=== PATIENT | female | born 1990 | race Two or more races ===

== ENCOUNTER 2024-10-24 15:30 | Inpatient (IN) | payer OTHER ==
[~2024-10-24] VITALS: Ht 154.9 cm; Wt 3.2 kg
[2024-10-30 15:30] VITALS: BP 114/78
[2024-10-30] MEDS ORDERED: PRENATAL TABLE1 EAC1 (16:11)
[2024-10-30] MEDS ORDERED: RINGERS SOLUTION,LACTATED 1,000 ML IV SCH (16:15)
[2024-10-30] MEDS ORDERED: MORPHINE SULFATE 4 MG/ML CARTRIDGE IV PRN (16:30)
[2024-10-30 17:06] LABS: HEMATOCRIT 33.5 % (36.0-45.00); HEMOGLOBIN 11.2 g/dL (12.0-15.00); MEAN CELL VOLUME 84.1 fL (80.00-100.00); MEAN CORPUSCULAR HEMOGLOBIN 28.2 pg (27.00-32.0); MEAN CORPUSCULAR HGB CONC 33.5 g/dl (32.0-36.0); PLATELET COUNT 243 K/uL (150-450); RED BLOOD COUNT 3.99 M/uL (4.00-6.00); RED CELL DISTRIBUTION WIDTH 14.9 % (11.5-14.5)
[2024-10-30] MEDS ORDERED: MISOPROSTOL 25 MCG TABLET VAG ONE (17:15)
[2024-10-30 17:17] LABS: INR 0.94; PARTIAL THROMBOPLASTIN TIME 25.6 SECONDS (22.0-34.0); PROTHROMBIN TIME 10.3 SECONDS (9.0-11.5)
[2024-10-30 17:22] LABS: BILIRUBIN TOTAL 0.57 mg/dL (0.3-1.2); CALCIUM 8.9 mg/dL (8.5-10.1); CREATININE SERUM 0.71 mg/dL (0.55-1.02); GFR 93.68; GLOBULINA 3.6 G/DL (2.4-3.5); POTASSIUM 4.19 mEq/L (3.5-5.1); TOTAL PROTEIN 6.6 gm/dL (6.4-8.2)
[2024-10-30 19:13] VITALS: BP 120/80
[2024-10-30] MEDS ORDERED: MAGNESIUM SULFATE IN WATER 500 ML IV SCH (22:00)
[2024-10-30] MEDS ORDERED: TERBUTALINE SULFATE 1 MG/ML AMPUL SUBCUTANEO ONE (22:00)
[2024-10-30 23:23] VITALS: BP 111/59
[2024-10-31 04:00] VITALS: BP 104/61
[2024-10-31 07:37] VITALS: BP 118/83
[2024-10-31] MEDS ORDERED: OXYTOCIN 500 ML IV SCH (08:15)
[2024-10-31] MEDS ORDERED: CEFAZOLIN SODIUM 1,000 MG VIAL IV SCH (09:00)
[2024-10-31] MEDS ORDERED: OXYTOCIN 1,000 ML IV SCH (11:15)
[2024-10-31] MEDS ORDERED: MORPHINE SULFATE 4 MG/ML CARTRIDGE IV PRN (11:15)
[2024-10-31] MEDS ORDERED: OXYTOCIN 10 UNITS/ML VIAL IV ONE (11:45)
[2024-10-31] MEDS ORDERED: ONDANSETRON HCL 2 MG/ML VIAL IV ONE (11:45)
[2024-10-31] MEDS ORDERED: ERYTHROMYCIN BASE OPHT 1GM EACH TUBE OP ONE (11:45)
[2024-10-31] MEDS ORDERED: MORPHINE SULFATE 4 MG/ML VIAL IV ONE ×2 (11:50→12:50)
[2024-10-31 16:22] VITALS: BP 123/78
[2024-11-01 01:16] VITALS: BP 113/73
[2024-11-01 05:25] VITALS: BP 94/60
[2024-11-01] MEDS ORDERED: MORPHINE SULFATE 4 MG/ML CARTRIDGE IV PRN (08:00)
[2024-11-01 08:37] VITALS: BP 105/68
[2024-11-01] MEDS ORDERED: IBUprofen 400 MG TABLET PO SCH (09:00)
[2024-11-01 09:19] LABS: HEMATOCRIT 26.6 % (36.0-45.00); MEAN CELL VOLUME 84.2 fL (80.00-100.00); MEAN CORPUSCULAR HEMOGLOBIN 28.2 pg (27.00-32.0); MEAN CORPUSCULAR HGB CONC 33.5 g/dl (32.0-36.0); PLATELET COUNT 207 K/uL (150-450); RED BLOOD COUNT 3.15 M/uL (4.00-6.00); RED CELL DISTRIBUTION WIDTH 14.9 % (11.5-14.5)
[2024-11-01 09:20] LABS: HEMOGLOBIN 8.9 g/dL (12.0-15.00)
[2024-11-01 16:20] VITALS: BP 120/82
[2024-11-02] VITALS: BP 100/62
[2024-11-02] MEDS ORDERED: OxyCODONE HCL 5 MG TABLET (ROXICODONE) PO PRN (06:00)
[2024-11-02 08:52] VITALS: BP 113/76
== END 2024-11-02 13:07 | disposition home or self-care (01) | DRG 788 ==
LOC: LDR 10-30 14:30 → OB/GYN 10-30 14:30 → LDR 10-30 14:52 → OB/GYN 10-31 13:49 → SURG 11-01 15:30 → OB/GYN 11-02 13:07
PROVIDERS: ADMIT Obstetrics & Gynecology; ATTEND Obstetrics & Gynecology
PROC: 4A1HXCZ Monitoring of Products of Conception, Cardiac Rate, External Approach (ICD-10-PCS; 2024-10-30)
PROC: 10D00Z1 Extraction of Products of Conception, Low, Open Approach (ICD-10-PCS; principal; 2024-10-31 10:30)
DX: O33.8 Maternal care for disproportion of other origin (principal); O69.81X0 Labor and delivery complicated by cord around neck, without compression, not applicable or unspecified; Z3A.39 39 weeks gestation of pregnancy; Z37.0 Single live birth

== ENCOUNTER 2024-10-26 14:35 | Outpatient (CLI) | payer OTHER | END 2024-10-26 15:42 | disposition home or self-care (01) | LOC: NST 14:35 | PROVIDERS: ATTEND Obstetrics & Gynecology Gynecology | DX: Z3A.39 39 weeks gestation of pregnancy (principal) ==